=== PATIENT | female | born 1985 | race African-American/Black ===

== ENCOUNTER 2016-09-12 12:27 | Emergency (ER) | payer OTHER ==
[2016-09-12 12:45] VITALS: BP 111/59; PULSE 108; TEMP 99; BMI 24.5
--- NOTE | 2016-09-12 13:37 | PDOC ---
History of Present Illness - General Chief Complaint: Cold Symptoms Stated Complaint: COLD, VOMITING, FEVER Time Seen by Provider: 09/12/16 13:24 - History of Present Illness Initial Comments: 09/13/16 15:04 not seen by Yajaira FUNES Past History - Past Medical History Allergies/Adverse Reactions: Allergies Allergy/AdvReac Type Severity Reaction Status Date / Time No Known Allergies Allergy Verified 09/12/16 12:40 Home Medications: Ambulatory Orders Albuterol Sulfate Inhaler - [Ventolin HFA Inhaler -] 2 inh PO Q4H #1 inh Thyroid Disease: No Other medical history: DENIES. - Surgical History Abdominal Surgery: Yes - Psycho/Social/Smoking Cessation Hx Anxiety: No Suicidal Ideation: No Smoking History: Never smoked Have you smoked in the past 12 months: No Hx Alcohol Use: No Substance Use Type: None *Physical Exam - Vital Signs Last Vital Signs Temp Pulse Resp BP Pulse Ox 99 F 108 H 19 111/59 99 09/12/16 12:40 09/12/16 12:40 09/12/16 12:40 09/12/16 12:40 09/12/16 12:40 *DC/Admit/Observation/Transfer Diagnosis at time of Disposition: Influenza A - Discharge Dispostion Disposition: HOME - Prescriptions Prescriptions: Albuterol Sulfate Inhaler - [Ventolin HFA Inhaler -] 2 inh PO Q4H #1 inh - Referrals Referrals: STAFF,NOT ON [Primary Care Provider] - - Patient Instructions Additional Instructions: REST AT HOME; LOTS OF FLUIDS; MOTRIN FOR FEVER, BODY ACHES; - Post Discharge Activity Work/School Note: Back to Work
[2016-09-12] MEDS ORDERED: KETOROLAC TROMETHAMINE 60 MG/2 ML VIAL IM ONE (13:53)
[2016-09-12] MEDS ORDERED: ALBUTEROL SO4 0.083% IH SOL 2.5 MG/3 ML VIAL.NEB. NEB ONE ×2 (13:58→14:03)
[2016-09-12] MEDS ORDERED: ONDANSETRON 4 MG TABLET PO ONE (14:02)
[2016-09-12] MEDS ORDERED: KETOROLAC TROMETHAMINE 60 MG/2 ML VIAL ONE (14:13)
[2016-09-12] MEDS ORDERED: ONDANSETRON *ODT* 4 MG TABLET ONE (14:13)
[2016-09-12 14:38] LABS: URINE APPEARANCE SLCLOUDY; URINE BILIRUBIN NEGATIVE (NEGATIVE); URINE BLOOD NEGATIVE (NEGATIVE); URINE COLOR YELLOW; URINE GLUCOSE (UA) NEGATIVE (NEGATIVE); URINE KETONE TRACE (NEGATIVE); URINE LEUK ESTERASE NEGATIVE (NEGATIVE); URINE NITRITE NEGATIVE (NEGATIVE); URINE PROTEIN NEGATIVE (NEGATIVE); URINE UROBILINOGEN NEGATIVE E.U./dl (0.2-1.0)
--- NOTE | 2016-09-12 15:42 | PDOC ---
History of Present Illness - General Chief Complaint: Cold Symptoms Stated Complaint: COLD, VOMITING, FEVER Time Seen by Provider: 09/12/16 13:24 History Source: Patient Exam Limitations: No Limitations - History of Present Illness Initial Comments: 09/12/16 15:37 CC FEVER, CHILLS, ndv X 3 DAYS WITH BODY ACHES Timing/Duration: reports: getting worse Severity: reports: moderate Possible Cause: Yes: no prior episodes Past History - Past Medical History Allergies/Adverse Reactions: Allergies Allergy/AdvReac Type Severity Reaction Status Date / Time No Known Allergies Allergy Verified 09/12/16 12:40 Home Medications: Ambulatory Orders NK [No Known Home Medication] 12/03/14 Thyroid Disease: No Other medical history: DENIES. - Surgical History Abdominal Surgery: Yes - Psycho/Social/Smoking Cessation Hx Anxiety: No Suicidal Ideation: No Smoking History: Never smoked Have you smoked in the past 12 months: No Hx Alcohol Use: No Substance Use Type: None Review of Systems - Review of Systems Constitutional: Yes: Chills, Fever, Malaise HEENTM: Yes: Nose Pain, Nose Congestion Respiratory: Yes: Cough ABD/GI: Yes: Symptoms Reported, Nausea, Vomiting. No: Diarrhea *Physical Exam - Vital Signs Last Vital Signs Temp Pulse Resp BP Pulse Ox 99 F 108 H 19 111/59 99 09/12/16 12:40 09/12/16 12:40 09/12/16 12:40 09/12/16 12:40 09/12/16 12:40 - Physical Exam General Appearance: Yes: Appropriately Dressed. No: Apparent Distress HEENT: positive: TMs Normal, Pharynx Normal. negative: Tonsillar Exudate, Tonsillar Erythema Neck: positive: Supple. negative: Tender, Rigid, Lymphadenopathy (R), Lymphadenopathy (L) Respiratory/Chest: positive: Lungs Clear, Wheezing Cardiovascular: positive: Regular Rhythm, Regular Rate. negative: Murmur ED Treatment Course - ADDITIONAL ORDERS Additional order review: Laboratory Results 09/12/16 12:13 Urine Color Yellow Urine Appearance Slcloudy Urine pH 6.0 Ur Specific [place] 1.025 Urine Protein Negative Urine Glucose (UA) Negative Urine Ketones Trace H Urine Blood Negative Urine Nitrite Negative Urine Bilirubin Negative Urine Urobilinogen Negative Ur Leukocyte Esterase Negative Urine HCG, Qual Negative 09/12/16 12:13 Influenza Types A,B Antigen ([facility]) - Final Nasopharyngeal Swab - Final - Medications Given in the ED: ED Medications Discontinued Medications Generic Name Dose Route Start Last Admin Trade Name Freq PRN Reason Stop Dose Admin Albuterol Sulfate 1 amp 09/12/16 13:58 09/12/16 14:07 Ventolin 0.083% Nebulizer Soln - NEB 09/12/16 13:59 1 amp ONCE ONE Administration Ketorolac Tromethamine 60 mg 09/12/16 13:53 09/12/16 15:00 Toradol Injection - IM 09/12/16 13:54 60 mg ONCE ONE Administration Ondansetron HCl 4 mg 09/12/16 14:02 09/12/16 14:24 Zofran - PO 09/12/16 14:03 4 mg ONCE ONE Administration Medical Decision Making - Medical Decision Making 09/12/16 15:40 POSITIVE INFLUENZA A ; BUT HAD FLU SHOT EARLY IN WEEK; PT hcw AT [facility] *DC/Admit/Observation/Transfer Diagnosis at time of Disposition: Influenza A - Discharge Dispostion Disposition: HOME Condition at time of disposition: Stable Admit: No - Patient Instructions Additional Instructions: REST AT HOME; LOTS OF FLUIDS; MOTRIN FOR FEVER, BODY ACHES; - Post Discharge Activity Work/School Note: Back to Work
== END 2016-09-12 16:36 | disposition home or self-care (01) ==
LOC: JERFT 12:27
PROC: 3E0F7GC Introduction of Other Therapeutic Substance into Respiratory Tract, Via Natural or Artificial Opening (ICD-10-PCS; principal; 2016-09-12)
PROC: 3E0233Z Introduction of Anti-inflammatory into Muscle, Percutaneous Approach (ICD-10-PCS; 2016-09-12)
DX: J09.X2 Influenza due to identified novel influenza A virus with other respiratory manifestations (principal)
CPT/HCPCS: 81003; 84703; 87804; 94640; 96372; 99281-25

== ENCOUNTER 2017-06-21 12:13 | Emergency (ER) | payer OTHER ==
[2017-06-21 12:29] VITALS: TEMP 98.2; BMI 25.0
--- NOTE | 2017-06-21 12:45 | PDOC ---
*Physical Exam - Vital Signs Last Vital Signs Temp Pulse Resp BP Pulse Ox 98.2 F 79 18 115/51 100 06/21/17 12:26 06/21/17 12:26 06/21/17 12:26 06/21/17 12:26 06/21/17 12:26 ED Treatment Course - LABORATORY CBC & Chemistry Diagram: 06/21/17 13:50 06/21/17 13:50 Medical Decision Making - Medical Decision Making 06/21/17 16:12 Pt seen by the Advanced Practice Provider under my direct supervision Ancillary studies reviewed I agree with plan as outlined by the Advanced Practice Provider
--- NOTE | 2017-06-21 13:46 | PDOC ---
History of Present Illness - General Chief Complaint: Pain Stated Complaint: ABD PAIN Time Seen by Provider: 06/21/17 12:40 History Source: Patient Exam Limitations: No Limitations - History of Present Illness Travel History: No Initial Comments: 06/21/17 13:01 32-year-old female presents with the pain since yesterday. Patient states the approximately 6 weeks but has had no care, ultrasound or urinary complaints. 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 Patient states has no back pain, vaginal discharge, vaginal bleeding, constipation, dyspareunia, recent injury. Timing/Duration: reports: constant Quality: reports: mild, cramping Abdominal Pain Onset Location: reports: suprapubic Pain Radiation: reports: no radiation Activities at Onset: reports: none Aggravating Factors: improves with: None Alleviating Factors: improves with: None Past History - Past Medical History Allergies/Adverse Reactions: Allergies Allergy/AdvReac Type Severity Reaction Status Date / Time No Known Allergies Allergy Verified 06/21/17 12:26 Home Medications: Ambulatory Orders Albuterol Sulfate Inhaler - [Ventolin HFA Inhaler -] 2 inh PO Q4H #1 inh COPD: No Thyroid Disease: No - Surgical History Abdominal Surgery: Yes - Suicide/Smoking/Psychosocial Hx Smoking History: Never smoked Have you smoked in the past 12 months: No Information on smoking cessation initiated: No Hx Alcohol Use: No Substance Use Type: None Patient Lives Alone: No Lives with/in: spouse/SO Review of Systems - Review of Systems Able to Perform ROS?: Yes Constitutional: No: Symptoms Reported HEENTM: No: Symptoms Reported Respiratory: No: Symptoms reported Cardiac (ROS): No: Symptoms Reported ABD/GI: Yes: Abdominal cramping : No: Symptoms Reported Musculoskeletal: No: Symptoms Reported Integumentary: No: Symptoms Reported Neurological: No: Symptoms reported *Physical Exam - Vital Signs Last Vital Signs Temp Pulse Resp BP Pulse Ox 98.2 F 79 18 115/51 100 06/21/17 12:26 06/21/17 12:26 06/21/17 12:26 06/21/17 12:26 06/21/17 12:26 - Physical Exam General Appearance: Yes: Nourished, Appropriately Dressed. No: Apparent Distress Neck: positive: Normal Thyroid Respiratory/Chest: positive: Lungs Clear, Normal Breath Sounds. negative: Respiratory Distress, Accessory Muscle Use Cardiovascular: positive: Regular Rhythm, Regular Rate. negative: Murmur Female Pelvic Exam: negative: CMT, discharge, adnexal tenderness, vaginal bleeding Gastrointestinal/Abdominal: positive: Normal Bowel Sounds, Soft, Tenderness ( midsuprapubic). negative: Distended, Guarding, Rebound, Mass Musculoskeletal: negative: CVA Tenderness Extremity: negative: Pedal Edema Integumentary: positive: Normal Color, Warm, Moist Neurologic: positive: Motor Strength 5/5 (ambulatory) ED Treatment Course - RADIOLOGY Radiology Studies Ordered: Category Date Time Status TRANSVAGINAL US PREG [US] Stat Ultrasound 06/21/17 13:40 Ordered Medical Decision Making - Medical Decision Making 06/21/17 13:47 Patient was reviewed pain for the past 2-3 days without urinary complaints including vaginal complaints. Patient has had no care or ultrasound for this patient denies tobacco use. Patient on exam had suprapubic tenderness with no vaginal discharge CMT or adnexal tenderness. Patient ordered for CBC, comp, beta hCG, urinalysis urine culture, and ultrasound. Patient also ordered for Tylenol for discomfort.
[2017-06-21] MEDS ORDERED: ACETAMINOPHEN 500 MG TABLET (FP) PO ONE (13:48)
[2017-06-21 14:01] LABS: BASOPHIL 0.6 % (0-2.0); EOSINOPHIL 1.3 % (0-4.5); MCH 26.4 pg (25.7-33.7); MCHC 31.7 g/dl (32.0-36.0); MEAN CELL VOLUME 83.3 fl (80-96); MEAN PLT VOLUME 6.9 fl (7.5-11.1); NEUTROPHILS 54.8 % (42.8-82.8); PLATELET COUNT 288 K/MM3 (134-434); WHITE BLOOD COUNT 5.8 K/mm3 (4.0-10.0)
[2017-06-21] MEDS ORDERED: ACETAMINOPHEN 325 MG TABLET (FP) ONE (14:03)
[2017-06-21 14:05] LABS: URINE APPEARANCE CLEAR; URINE BILIRUBIN NEGATIVE (NEGATIVE); URINE BLOOD NEGATIVE (NEGATIVE); URINE COLOR STRAW; URINE GLUCOSE (UA) NEGATIVE (NEGATIVE); URINE KETONE NEGATIVE (NEGATIVE); URINE NITRITE NEGATIVE (NEGATIVE); URINE PROTEIN NEGATIVE (NEGATIVE); URINE UROBILINOGEN NEGATIVE mg/dL (0.2-1.0)
--- NOTE | 2017-06-21 14:05 | PDOC ---
*Physical Exam - Vital Signs 32 YOF (6 wks preg based on LMP) p/w 2-3d of suprapubic pain, no urinary sxs, no vaginal bleeding or discharge, no CMT or adnexal tenderness, not bleeding and no T&S ordered. Following up transvaginal US Saw an DISK RECORDIST for her prior and plans to follow up with them for her care. Last Vital Signs Temp Pulse Resp BP Pulse Ox 98.2 F 79 18 115/51 100 06/21/17 12:26 06/21/17 12:26 06/21/17 12:26 06/21/17 12:26 06/21/17 12:26 ED Treatment Course - LABORATORY CBC & Chemistry Diagram: 06/21/17 13:50 06/21/17 13:50 *DC/Admit/Observation/Transfer Diagnosis at time of Disposition: Abdominal pain affecting - Discharge Dispostion Disposition: HOME Condition at time of disposition: Stable Admit: No - Referrals - Patient Instructions Printed Discharge Instructions: DI for Abdominal Pain -- Early Additional Instructions: You were seen in the ER for abdominal pain in early . We did lab work and there were no concerning findings in your blood or urine tests. We also did a pelvic exam and there were no concerning findings on that exam. We did an ultrasound which showed the gestational sac at a size typical of about a 6 week 1 day . Oftentimes when the is this early, we do not see any contents inside this gestational sac, and we cannot see contents on your ultrasound. They may be easier to see in the coming days or weeks. We checked your test which was positive, but it needs to be re-checked in 48 hours or so. Please follow up with your OB doctor as scheduled tomorrow, and discuss with them the plan moving forward to re-check your hormones (beta-hCG). Our recommendation is to have your hormone level re-checked in 48 hours. Please also return to the ER if you have any new or worsening symptoms like worsening pain, vaginal bleeding, fever, or other symptoms. - Post Discharge Activity
[2017-06-21 14:32] LABS: ANION GAP 7 (8-16); BILIRUBIN,TOTAL 0.4 mg/dL (0.2-1.0); CALCIUM 8.6 mg/dL (8.5-10.1); CO2 27 mmol/L (21-32); CREATININE 0.6 mg/dL (0.55-1.02); GLUCOSE,RANDOM 100 mg/dL (74-106); SGOT/AST 10 U/L (15-37); SGPT/ALT 16 U/L (12-78); TOT PROT 6.7 g/dl (6.4-8.2)
[2017-06-21 14:48] LABS: ALK PHOS 71 U/L (45-117)
[2017-06-21 16:34] VITALS: BP 119/75; PULSE 72
[2017-06-21 19:59] LABS: URINE LEUK ESTERASE Negative (NEGATIVE)
== END 2017-06-21 16:34 | disposition home or self-care (01) ==
LOC: JER 12:13
DX: O26.891 Other specified pregnancy related conditions, first trimester (principal); R10.30 Lower abdominal pain, unspecified; Z3A.01 Less than 8 weeks gestation of pregnancy
CPT/HCPCS: 36415; 76817-TC; 80053; 81003; 84702; 85025; 87086; 99282-25

== ENCOUNTER 2017-07-04 16:49 | Emergency (ER) | payer OTHER ==
--- NOTE | 2017-07-04 17:00 | PDOC ---
Rapid Medical Evaluation Time Seen by Provider: 07/04/17 16:58 Medical Evaluation: Allergies Allergy/AdvReac Type Severity Reaction Status Date / Time No Known Allergies Allergy Verified 07/04/17 16:58 07/04/17 16:58 I have performed a brief in person evaluation of this patient. The patient presents with chief complaint of : lmp 05/03/17 had cramping this am with "passing of material" and some light vaginal bleeding. c section x1 9 yrs ago , followed at [facility] Pertinent PE findings: I have ordered the following: The patient will proceed to the ER for further evaluation.
[2017-07-04 17:01] VITALS: BMI 26.4
[2017-07-04 17:37] LABS: BASOPHIL 0.4 % (0-2.0); EOSINOPHIL 1.6 % (0-4.5); MCH 27.8 pg (25.7-33.7); MCHC 33.6 g/dl (32.0-36.0); MEAN PLT VOLUME 7.4 fl (7.5-11.1); NEUTROPHILS 49.4 % (42.8-82.8); PLATELET COUNT 279 K/MM3 (134-434); RDW 13.8 % (11.6-15.6); WHITE BLOOD COUNT 6.7 K/mm3 (4.0-10.0)
[2017-07-04 17:41] LABS: URINE APPEARANCE CLEAR; URINE BILIRUBIN NEGATIVE (NEGATIVE); URINE BLOOD 2+ (NEGATIVE); URINE COLOR STRAW; URINE GLUCOSE (UA) NEGATIVE (NEGATIVE); URINE KETONE NEGATIVE (NEGATIVE); URINE NITRITE NEGATIVE (NEGATIVE); URINE PROTEIN NEGATIVE (NEGATIVE); URINE UROBILINOGEN NEGATIVE mg/dL (0.2-1.0)
[2017-07-04 20:44] LABS: URINE MUCUS RARE; URINE RBC <1 /hpf (0-3); URINE WBC <1 /hpf (3-5)
[2017-07-04 21:02] LABS: INR 0.98 (0.82-1.09); PROTHROMBIN TIME (PATIENT) 11.1 SEC (9.98-11.88)
--- NOTE | 2017-07-04 21:25 | PDOC ---
History of Present Illness - General History Source: Patient Exam Limitations: No Limitations - History of Present Illness Initial Comments: 07/04/17 21:40 The patient is a 32 year old female () 7 weeks , with no significant past medical history who presents to the emergency department with vaginal discharge today. Patient reports showering today and subsequently noticed clotting and pink vaginal discharge. Patient also notes cramping abdominal pain and presents to the ED for further evaluation. Patient was seen in the ED for cramping and was found to have positive . Patient denied any vaginal pain or contractions. <Jaquelin Collins - Last Filed: 07/04/17 21:58> <Sara Barry - Last Filed: 07/04/17 22:31> - General Chief Complaint: Vaginal Bleeding Stated Complaint: VAGINAL BLEEDING/7 WKS Time Seen by Provider: 07/04/17 16:58 Past History <Jaquelin Collins - Last Filed: 07/04/17 21:58> - Past Medical History COPD: No Thyroid Disease: No - Surgical History Abdominal Surgery: Yes - Reproductive History Is Patient Now?: Yes (#): 2 Para: 1 - Suicide/Smoking/Psychosocial Hx Smoking History: Never smoked Have you smoked in the past 12 months: No Hx Alcohol Use: No Substance Use Type: None <Sara Barry - Last Filed: 07/04/17 22:31> - Past Medical History Allergies/Adverse Reactions: Allergies Allergy/AdvReac Type Severity Reaction Status Date / Time No Known Allergies Allergy Verified 07/04/17 16:58 Home Medications: Ambulatory Orders NK [No Known Home Medication] 07/04/17 Review of Systems - Review of Systems Able to Perform ROS?: Yes Comments:: 07/04/17 21:40 CONSTITUTIONAL: Absent: fever, chills, diaphoresis, generalized weakness, malaise, loss of appetite HEENT: Absent: rhinorrhea, nasal congestion, throat pain, throat swelling, difficulty swallowing, mouth swelling, ear pain, eye pain, visual Changes CARDIOVASCULAR: Absent: chest pain, syncope, palpitations, irregular heart rate, lightheadedness , peripheral edema RESPIRATORY: Absent: cough, shortness of breath, dyspnea with exertion, orthopnea, wheezing, stridor, hemoptysis GASTROINTESTINAL: Absent: abdominal pain, abdominal distension, nausea, vomiting, diarrhea, constipation, melena, hematochezia GENITOURINARY: Absent: dysuria, frequency, urgency, hesitancy, hematuria, flank pain, genital pain MUSCULOSKELETAL: Absent: myalgia, arthralgia, joint swelling SKIN: Absent: rash, itching, pallor HEMATOLOGIC/IMMUNOLOGIC: Absent: easy bleeding, easy bruising, lymphadenopathy, frequent infections ENDOCRINE: Absent: unexplained weight gain, unexplained weight loss, heat intolerance, cold intolerance NEUROLOGIC: Absent: headache, focal weakness or paresthesias, dizziness, unsteady gait, seizure, mental status changes, bladder or bowel incontinence PSYCHIATRIC: Absent: anxiety, depression, suicidal or homicidal ideation, hallucinations. : +vaginal discharge. <Jaquelin Collins - Last Filed: 07/04/17 21:58> *Physical Exam - Vital Signs Last Vital Signs Temp Pulse Resp BP Pulse Ox 98 F 96 H 19 118/66 100 07/04/17 16:58 07/04/17 16:58 07/04/17 16:58 07/04/17 16:58 07/04/17 16:58 - Physical Exam Comments: 07/04/17 21:40 GENERAL: Well developed, well nourished. Awake and alert. No acute distress. HEENT: Normocephalic, atraumatic. PERRLA, EOMI. No conjunctival pallor. Sclera are non- icteric. Moist mucous membranes. Oropharynx is clear. NECK: Supple. Full ROM. No JVD. Carotid pulses 2+ and symmetric, without bruits. No thyromegaly. No lymphadenopathy. CARDIOVASCULAR: Regular rate and rhythm. No murmurs, rubs, or gallops. Distal pulses are 2+ and symmetric. PULMONARY: No evidence of respiratory distress. Lungs clear to auscultation bilaterally. No wheezing, rales or rhonchi. ABDOMINAL: Soft. Non-tender. Non-distended. No rebound or guarding. No organomegaly. Normoactive bowel sounds. MUSCULOSKELETAL Normal range of motion at all joints. No bony deformities or tenderness. No CVA tenderness. EXTREMITIES: No cyanosis. No clubbing. No edema. No calf tenderness. SKIN: Warm and dry. Normal capillary refill. No rashes. No jaundice. NEUROLOGICAL: Alert, awake, appropriate. Cranial nerves 2-12 intact. No deficits to light touch and temperature in face, upper extremities and lower extremities. No motor deficits in the in face, upper extremities and lower extremities. Normoreflexic in the upper and lower extremities. Normal speech. Toes are down-going bilaterally. Gait is normal without ataxia. PSYCHIATRIC: Cooperative. Good eye contact. Appropriate mood and affect. PELVIC: +Cervical os is closed. No external vesicles. No discharge or blood in the vaginal vault. <Jaquelin Collins - Last Filed: 07/04/17 21:58> - Vital Signs Last Vital Signs Temp Pulse Resp BP Pulse Ox 98 F 96 H 19 118/66 100 07/04/17 16:58 07/04/17 16:58 07/04/17 16:58 07/04/17 16:58 07/04/17 16:58 <Sara Barry - Last Filed: 07/04/17 22:31> ED Treatment Course - LABORATORY CBC & Chemistry Diagram: 07/04/17 17:13 - ADDITIONAL ORDERS Additional order review: Laboratory Results 07/04/17 07/04/17 07/04/17 20:20 19:08 17:13 PT with INR INR Beta HCG, Quant 127286.7 Urine Color Straw Urine Appearance Clear Urine pH 6.0 Ur Specific [place] 1.008 Urine Protein Negative Urine Glucose (UA) Negative Urine Ketones Negative Urine Blood 2+ H Urine Nitrite Negative Urine Bilirubin Negative Urine Urobilinogen Negative Urine WBC (Auto) <1 Urine RBC (Auto) <1 Ur Epithelial Cells Rare Urine Mucus Rare Urine HCG, Qual Positive Blood Type O POSITIVE Antibody Screen Negative 07/04/17 17:13 PT with INR 11.10 INR 0.98 Beta HCG, Quant Urine Color Urine Appearance Urine pH Ur Specific [place] Urine Protein Urine Glucose (UA) Urine Ketones Urine Blood Urine Nitrite Urine Bilirubin Urine Urobilinogen Urine WBC (Auto) Urine RBC (Auto) Ur Epithelial Cells Urine Mucus Urine HCG, Qual Blood Type Antibody Screen 07/04/17 17:13 RBC 3.92 MCV 83.0 MCHC 33.6 RDW 13.8 MPV 7.4 L Neutrophils % 49.4 Lymphocytes % 37.4 Monocytes % 11.2 H Eosinophils % 1.6 Basophils % 0.4 <Jaquelin Collins - Last Filed: 07/04/17 21:58> - LABORATORY CBC & Chemistry Diagram: 07/04/17 17:13 - ADDITIONAL ORDERS Additional order review: Laboratory Results 12/04/17 12/04/17 12/04/17 20:20 19:08 17:13 PT with INR INR Beta HCG, Quant [id number] Urine Color Straw Urine Appearance Clear Urine pH 6.0 Ur Specific [place] 1.008 Urine Protein Negative Urine Glucose (UA) Negative Urine Ketones Negative Urine Blood 2+ H Urine Nitrite Negative Urine Bilirubin Negative Urine Urobilinogen Negative Urine WBC (Auto) <1 Urine RBC (Auto) <1 Ur Epithelial Cells Rare Urine Mucus Rare Urine HCG, Qual Positive Blood Type O POSITIVE Antibody Screen Negative 07/04/17 17:13 PT with INR 11.10 INR 0.98 Beta HCG, Quant Urine Color Urine Appearance Urine pH Ur Specific [place] Urine Protein Urine Glucose (UA) Urine Ketones Urine Blood Urine Nitrite Urine Bilirubin Urine Urobilinogen Urine WBC (Auto) Urine RBC (Auto) Ur Epithelial Cells Urine Mucus Urine HCG, Qual Blood Type Antibody Screen 07/04/17 17:13 RBC 3.92 MCV 83.0 MCHC 33.6 RDW 13.8 MPV 7.4 L Neutrophils % 49.4 Lymphocytes % 37.4 Monocytes % 11.2 H Eosinophils % 1.6 Basophils % 0.4 <Sara Barry - Last Filed: 07/04/17 22:31> Medical Decision Making - Medical Decision Making 07/04/17 22:03 -year-old female presents with some vaginal discharge. Patient is a special. Was in May. Beta-hCG greater than 123,000 Pelvic ultrasound shows single live intrauterine at 8 weeks and one day with heart tones of 154. There was a right corpus luteum cyst. Impression bleeding in early . Plan patient has an appointment with S[facility]DER this Tuesday and won't take her lab work and her ultrasound dictated department with her <Sara Barry - Last Filed: 07/04/17 22:31> *DC/Admit/Observation/Transfer - Attestations Scribe Attestion: 07/04/17 21:41 Documentation prepared by Jaquelin Collins, acting as medical instrument technician for Sara Barry MD <Jaquelin Collins - Last Filed: 07/04/17 21:58> <Sara Barry - Last Filed: 07/04/17 22:31> Diagnosis at time of Disposition: Qualifiers: Weeks of gestation: 8 weeks Qualified Code(s): Z3A.08 - 8 weeks gestation of - Discharge Dispostion Disposition: HOME Condition at time of disposition: Stable - Referrals Referrals: STAFF,NOT ON [Primary Care Provider] - - Patient Instructions Printed Discharge Instructions: DI for Vaginal Bleeding During Additional Instructions: please keep your appointment this Wed - Post Discharge Activity
[2017-07-04 22:53] LABS: URINE LEUK ESTERASE Negative (NEGATIVE)
[2017-07-05 06:00] VITALS: BP 129/80; PULSE 70; TEMP 98
== END 2017-07-04 22:33 | disposition home or self-care (01) ==
LOC: JER 16:49
DX: O26.891 Other specified pregnancy related conditions, first trimester (principal); Z3A.01 Less than 8 weeks gestation of pregnancy; N93.9 Abnormal uterine and vaginal bleeding, unspecified
CPT/HCPCS: 36415; 76801-TC; 81003; 81015; 84702; 84703; 85025; 85610; 86850; 86900; 86901; 99283-25

== ENCOUNTER 2018-02-10 06:35 | Inpatient (IN) | payer OTHER ==
[2018-02-10 07:06] VITALS: BMI 33.0
[2018-02-10] MEDS ORDERED: OXYTOCIN 20 UNITS in 0.9% NS 40 UNIT/2,000 ML INFUS.BAG IV ONE (07:56)
[2018-02-10] MEDS ORDERED: ceFAZolin SODIUM 1 GM VIAL ONE (07:57)
[2018-02-10] MEDS ORDERED: morphine SULFATE/Preservative Free 0.5 MG/ML (1cc Syringe) ONE (07:57)
[2018-02-10] MEDS ORDERED: DEXAMETHASONE SOD PHOSPHATE 4 MG/1 ML VIAL ONE (07:57)
[2018-02-10] MEDS ORDERED: PHENYLEPHRINE HCL 10 MG/1 ML SINGLE DOSE VIAL ONE (07:58)
[2018-02-10] MEDS ORDERED: BUPIVACAINE 0.75% IN DEXTROSE/PF 2ML AMPULE NR ONE (08:03)
[2018-02-10] MEDS ORDERED: ELECTROLYTE-148 SOLN 500 ML IV ONE (08:23)
[2018-02-10] MEDS ORDERED: CITRIC ACID/SODIUM CITRATE 30 ML UNIT-DOSE CUP PO ONE (08:23)
--- NOTE | 2018-02-10 08:29 | HP ---
Past Medical History - Admission Chief Complaint: Previous History of Present Illness: 32 yo @ 39 weeks gestation, with previous , admitted for repeat C- Section. She desires tubal ligation. History Source: Patient Limitations to Obtaining History: No Limitations - Past Medical History ...: 2 ...Para: 1 ...Term: 1 ...EDC by Jocelin: 02/17/18 - Past Surgical History Past Surgical History: Yes: Hx Myomectomy: No Hx Transabdominal Cerclage: No - Smoking History Smoking history: Never smoked Have you smoked in the past 12 months: No - Alcohol/Substance Use Hx Alcohol Use: No History of Substance Use: reports: None - Social History Usual Living Arrangement: Yes: With Significant Other History of Recent Travel: No Home Medications - Allergies Allergies/Adverse Reactions: Allergies Allergy/AdvReac Type Severity Reaction Status Date / Time carrot Allergy Verified 02/10/18 07:09 - Home Medications Home Medications: Ambulatory Orders Vit Calc,Iron,Folic [ Vitamins] 1 each PO DAILY 02/10/18 Family Disease History - Family Disease History Family History: Unremarkable Review of Systems - Review of Systems Constitutional: reports: No Symptoms Eyes: reports: No Symptoms HENT: reports: No Symptoms Neck: reports: No Symptoms Cardiovascular: reports: No Symptoms Respiratory: reports: No Symptoms Gastrointestinal: reports: No Symptoms Genitourinary: reports: No Symptoms Breasts: reports: No Symptoms Reported Musculoskeletal: reports: No Symptoms Integumentary: reports: No Symptoms Neurological: reports: No Symptoms Endocrine: reports: No Symptoms Hematology/Lymphatic: reports: No Symptoms Psychiatric: reports: No Symptoms Pain Intensity: 0 Physical Exam - Maternity Vital Signs: Vital Signs Temperature 98.4 F 02/10/18 06:45 Pulse Rate 89 02/10/18 06:45 Respiratory Rate 18 02/10/18 06:45 Blood Pressure 111/71 02/10/18 06:45 O2 Sat by Pulse Oximetry (%) Constitutional: Yes: Well Nourished Eyes: Yes: Conjunctiva Clear HENT: Yes: Atraumatic Neck: Yes: Supple Cardiovascular: Yes: Regular Rate and Rhythm Lungs: Clear to auscultation Breast(s): Yes: WNL - Abdominal Exam/OB Number of Fetuses: Single Presentation: Vertex - Physical Exam Integumentary: Yes: WNL ...Motor Strength: WNL Psychiatric: Yes: Alert, Oriented Problem List - Problems (1) Previous section Code(s): Z98.891 - HISTORY OF UTERINE SCAR FROM PREVIOUS SURGERY Assessment/Plan Previous Pre op for repeat Consent signed Anesthesia to see patient
[2018-02-10] MEDS ORDERED: OXYTOCIN 10 UNITS/ML VIAL ONE (08:46)
[2018-02-10] MEDS ORDERED: KETOROLAC TROMETHAMINE 30 MG/1 ML VIAL ONE (09:24)
[2018-02-10] MEDS ORDERED: METHYLERGONOVINE MALEATE 0.2 MG/1 ML AMP IM PRN (09:31)
--- NOTE | 2018-02-10 09:34 | OP ---
Operative Note - Note: Operative Date: 02/10/18 Pre-Operative Diagnosis: Elective Operation: Repeat Low Transverse Findings: Baby girl in LOT position Post-Operative Diagnosis: Same as Pre-op Surgeon: Crystal Che Compress Engineer: Tone Arenas Anesthesia: Spinal Specimens Removed: Placenta Estimated Blood Loss (mls): 500
[2018-02-10] MEDS: FERROUS SO4 325 MG TABLET (FP) PO SCH (10:00)
[2018-02-10] MEDS: PRENATAL VITAMINS W/ FOLIC ACID TABLET (FP) PO SCH (10:00)
[2018-02-10] MEDS: OXYTOCIN 20 UNITS in 0.9% NS 20 UNIT/1,000 ML INFUS.BAG IV SCH ×2 (11:30→17:00)
[2018-02-10] MEDS ORDERED: ELECTROLYTE-148 SOLN 1,000 ML IV SCH (11:40)
[2018-02-10] MEDS ORDERED: IBUPROFEN 800 MG/8 ML IJ IVPB ONE (11:56)
[2018-02-10] MEDS: IBUPROFEN 800 MG/8 ML IJ IVPB PRN ×2 (12:00→21:58)
[2018-02-10] MEDS ORDERED: ONDANSETRON 4 MG/2 ML VIAL IVPUSH PRN (13:16)
--- NOTE | 2018-02-11 01:11 | PN ---
Post Progress Note - Subjective Subjective: 32 yo Para 2 status post repeat , seen and evaluated. She c/o generalized body itch. Post Day: 1 Type of Delivery: Repeat C/S Vital Signs: Vital Signs Temperature 98.9 F 02/10/18 22:00 Pulse Rate 73 02/10/18 22:00 Respiratory Rate 18 02/11/18 00:00 Blood Pressure 119/62 02/10/18 22:00 O2 Sat by Pulse Oximetry (%) 99 02/10/18 11:15 Breast Exam: Yes: Soft Uterus: Yes: Fundus Firm Incision: Yes: Dressing dry and intact Lochia: Yes: Rubra Lochia, amount: Small Extremities: Yes: Calves non-tender Perineum: Yes: Intact Activity: Other (She's lying in bed) Problem List - Problems (1) Previous section Code(s): Z98.891 - HISTORY OF UTERINE SCAR FROM PREVIOUS SURGERY Assessment/Plan Status post repeat Generalized body itch Benadryl 50 mg Q 6 hrs Ambulation Analgesia as needed Continue post op care
[2018-02-11] MEDS: diphenhydrAMINE HCL 25 MG CAPSULE (FP) PO PRN ×3 (01:23→15:00)
[2018-02-11] MEDS: SIMETHICONE 80 MG TAB.CHEW (FP) PO PRN ×4 (04:23→23:22)
[2018-02-11] MEDS: IBUPROFEN 600 MG TABLET (FP) PO PRN ×4 (04:23→23:22)
[2018-02-11] MEDS: oxyCODONE HCL 5 MG TABLET PO PRN ×4 (04:23→23:22)
[2018-02-11 07:01] LABS: BASO % 0.2 % (0-2.0); EOS % 0.2 % (0-4.5); HEMATOCRIT 23.1 % (32.4-45.2); HEMOGLOBIN 7.3 GM/dL (10.7-15.3); MCH 24.5 pg (25.7-33.7); MCHC 31.4 g/dl (32.0-36.0); MEAN PLT VOLUME 7.9 fl (7.5-11.1); MONO % 9.7 % (3.8-10.2); NEUT % 71.9 % (42.8-82.8); PLATELET COUNT 261 K/MM3 (134-434); RBC 2.96 M/mm3 (3.60-5.2); RDW 15.9 % (11.6-15.6); WHITE BLOOD COUNT 16.4 K/mm3 (4.0-10.0)
[2018-02-11] MEDS: FERROUS SO4 325 MG TABLET (FP) PO SCH ×3 (08:34→17:33)
[2018-02-11] MEDS ORDERED: BISACODYL 10 MG SUPP.RECT RC PRN (09:31)
[2018-02-11] MEDS: PRENATAL VITAMINS W/ FOLIC ACID TABLET (FP) PO SCH (09:33)
[2018-02-11] MEDS ORDERED: DIPHTH,PERTUSS(ACELL),TET 0.5 ML DISP.SYRIN IM ONE (10:00)
[2018-02-11 12:07] LABS: BASO % 0.2 % (0-2.0); EOS % 0.3 % (0-4.5); HEMATOCRIT 23.2 % (32.4-45.2); HEMOGLOBIN 7.3 GM/dL (10.7-15.3); LYMPH % 17.8 % (8-40); MCH 24.6 pg (25.7-33.7); MCHC 31.6 g/dl (32.0-36.0); MEAN PLT VOLUME 7.5 fl (7.5-11.1); MONO % 7.5 % (3.8-10.2); NEUT % 74.2 % (42.8-82.8); PLATELET COUNT 267 K/MM3 (134-434); RBC 2.98 M/mm3 (3.60-5.2)
--- NOTE | 2018-02-11 20:03 | PN ---
Progress Note, Physician Chief Complaint: Pt. has been having generalized itching and blurred vision since this morning. She also has been bleeding and has a low hgb of 7.3. Otherwise no anesthesia complaints. - Current Medication List Current Medications: Active Medications Bisacodyl (Dulcolax Suppository -) 10 mg RC PRN PRN PRN Reason: CONSTIPATION Diphenhydramine HCl (Benadryl -) 50 mg PO Q6H PRN PRN Reason: FOR ITCHING Last Admin: 02/11/18 15:00 Dose: 50 mg Ferrous Sulfate (Feosol -) 325 mg PO BIDWM KAITLIN Last Admin: 02/11/18 17:33 Dose: 325 mg Ibuprofen (Motrin -) 600 mg PO Q4H PRN PRN Reason: PAIN LEVEL 1 - 3 Last Admin: 02/11/18 15:01 Dose: 600 mg Methylergonovine Maleate (Methergine Injection -) 0.2 mg IM Q4H PRN PRN Reason: Excessive Bleeding (L&D) Last Admin: 02/11/18 17:30 Dose: 0.2 mg Oxycodone HCl (Roxicodone -) 5 mg PO Q4H PRN PRN Reason: PAIN LEVEL 4 - 6 Last Admin: 02/11/18 15:02 Dose: 5 mg Multivit/Folic Acid/Iron ( Vitamins (Sjr) -) 1 tab PO DAILY KAITLIN Last Admin: 02/11/18 09:33 Dose: 1 tab Simethicone (Mylicon -) 80 mg PO Q4H PRN PRN Reason: GAS Last Admin: 02/11/18 15:03 Dose: 80 mg - Objective Vital Signs: Vital Signs Temperature 98.9 F 02/11/18 17:30 Pulse Rate 77 02/11/18 17:30 Respiratory Rate 20 02/11/18 17:30 Blood Pressure 99/55 02/11/18 17:30 O2 Sat by Pulse Oximetry (%) 99 02/10/18 11:15 Constitutional: Yes: Well Nourished, No Distress, Calm Musculoskeletal: Yes: WNL Neurological: Yes: Other (blurred vision) ...Motor Strength: WNL Labs: CBC, BMP 02/11/18 11:52 Assessment/Plan POD#1 s/p repeat and tubal ligation under spinal with duramorph. Has blurry vision and low blood count. Will be getting blood transfusion and seen by hospitalist for blurry vision. Benadryl was increased to 50mg q6h by Dr. Che.
--- NOTE | 2018-02-11 21:37 | CONSULT ---
Consultation: REQUESTING PROVIDER: CONSULT REQUEST: We have been asked to medically evaluate this patient for blurry vision. HISTORY OF PRESENT ILLNESS: 32 y/o F 1 day s/p , c/o blurry vision starting in the morning. Has passed flatus, no bowel movement yet Hgb 7.3, transfusion ordered. REVIEW OF SYSTEMS: headache, blurry vision, abdominal/pelvic cramping, passing bloody clots in urine, dizziness on rising from supine position. PHYSICAL EXAMINATION Vital Signs - 24 hr 02/10/18 02/10/18 02/11/18 22:00 23:00 00:00 Temperature 98.9 F Pulse Rate 73 Respiratory 18 18 18 Rate Blood Pressure 119/62 02/11/18 02/11/18 02/11/18 01:00 02:00 03:00 Temperature 98.5 F Pulse Rate 70 Respiratory 18 18 18 Rate Blood Pressure 106/55 02/11/18 02/11/18 02/11/18 04:00 05:00 06:00 Temperature 98.3 F Pulse Rate 71 Respiratory 18 18 18 Rate Blood Pressure 103/61 02/11/18 02/11/18 02/11/18 07:00 08:00 08:40 Temperature 97.6 F Pulse Rate 75 Respiratory 20 20 18 Rate Blood Pressure 121/61 02/11/18 17:30 Temperature 98.9 F Pulse Rate 77 Respiratory 20 Rate Blood Pressure 99/55 GENERAL: Lethargic but arousable, oriented x 3 EYES: EOMI EARS, NOSE, THROAT: Moist mucous membranes. LUNGS: Breath sounds equal, clear to auscultation bilaterally. No wheezes, and no crackles. No accessory muscle use. HEART: Regular rate and rhythm, normal S1 and S2 without murmur, rub or gallop. ABDOMEN: distended, TTP throughout, surgical dressing intact w/o leakage EXTREMITIES: 2+ pulses, warm, well-perfused. No calf tenderness. No peripheral edema. NEUROLOGICAL: Cranial nerves II-XII intact. Moving 4 extremities spontaneously SKIN: Warm, dry, normal turgor, no rashes or lesions noted. Laboratory Results - last 24 hr 02/11/18 02/11/18 02/11/18 06:30 11:52 18:38 WBC 16.4 H 14.0 H RBC 2.96 L 2.98 L Hgb 7.3 L 7.3 L Hct 23.1 L D 23.2 L MCV 78.0 L 78.0 L MCH 24.5 L 24.6 L MCHC 31.4 L 31.6 L RDW 15.9 H 16.0 H Plt Count 261 D 267 MPV 7.9 7.5 Absolute Neuts (auto) 11.8 10.4 Neutrophils % 71.9 74.2 Lymphocytes % 18.0 17.8 Monocytes % 9.7 7.5 Eosinophils % 0.2 0.3 Basophils % 0.2 0.2 Nucleated RBC % 0 0 Crossmatch See Detail Active Medications Generic Name Dose Route Start Last Admin Trade Name Freq PRN Reason Stop Dose Admin Bisacodyl 10 mg 02/11/18 09:31 Dulcolax Suppository - RC PRN PRN CONSTIPATION Diphenhydramine HCl 50 mg 02/11/18 01:04 02/11/18 15:00 Benadryl - PO 50 mg Q6H PRN Administration FOR ITCHING Ferrous Sulfate 325 mg 02/10/18 10:00 02/11/18 17:33 Feosol - PO 325 mg BIDWM KAITLIN Administration Ibuprofen 600 mg 02/10/18 09:31 02/11/18 15:01 Motrin - PO 600 mg Q4H PRN Administration PAIN LEVEL 1 - 3 Methylergonovine Maleate 0.2 mg 02/10/18 09:31 02/11/18 17:30 Methergine Injection - IM 0.2 mg Q4H PRN Administration Excessive Bleeding (L&D) Oxycodone HCl 5 mg 02/10/18 09:31 02/11/18 15:02 Roxicodone - PO 5 mg Q4H PRN Administration PAIN LEVEL 4 - 6 Multivit/Folic Acid/Iron 1 tab 02/10/18 10:00 02/11/18 09:33 Vitamins (Sjr) - PO 1 tab DAILY KAITLIN Administration Simethicone 80 mg 02/10/18 09:31 02/11/18 15:03 Mylicon - PO 80 mg Q4H PRN Administration GAS ASSESSMENT/PLAN: #blurry vision -able to track finger appropriately in EOM assessment -unlikely any organic ocular pathology -ordered CBC, CMP, lactic acid, magnesium, PT/INR -will assess for correction 2/2 correction of anemia Dispo: We will continue to follow the patient. Thank you for this consultative opportunity. Visit type - Emergency Visit Emergency Visit: No - New Patient This patient is new to me today: Yes Date on this admission: 02/11/18 - Critical Care Critical Care patient: No
[2018-02-11 21:54] LABS: HEMOGLOBIN 8.1 GM/dL (10.7-15.3); MCH 24.1 pg (25.7-33.7); MCHC 31.2 g/dl (32.0-36.0); MEAN CELL VOLUME 77.4 fl (80-96); PLATELET COUNT 334 K/MM3 (134-434); RBC 3.36 M/mm3 (3.60-5.2); RDW 16.2 % (11.6-15.6); WHITE BLOOD COUNT 11.5 K/mm3 (4.0-10.0)
[2018-02-11 22:07] LABS: INR 0.93 (0.82-1.09); PROTHROMBIN TIME (PATIENT) 10.5 SEC (9.7-13.0)
[2018-02-11 22:18] LABS: ALBUMIN 2.1 g/dl (3.4-5.0); ANION GAP 8 (8-16); BLOOD UREA NITROGEN 6 mg/dL (7-18); CALCIUM 7.9 mg/dL (8.5-10.1); CHLORIDE 108 mmol/L (98-107); CO2 25 mmol/L (21-32); CREATININE 0.6 mg/dL (0.55-1.02); GLUCOSE,RANDOM 80 mg/dL (74-106); MAGNESIUM 1.9 mg/dL (1.8-2.4); POTASSIUM 3.5 mmol/L (3.5-5.1); SGOT/AST 21 U/L (15-37); SGPT/ALT 14 U/L (12-78); SODIUM 141 mmol/L (136-145)
[2018-02-11 22:20] LABS: ALK PHOS 141 U/L (45-117); BILIRUBIN,TOTAL 0.2 mg/dL (0.2-1.0); TOT PROT 5.7 g/dl (6.4-8.2)
--- NOTE | 2018-02-12 00:13 | PN ---
Teaching Attending Note Name of Resident: Dennis Carrizales ATTENDING PHYSICIAN STATEMENT I saw and evaluated the patient. I reviewed the resident's note and discussed the case with the resident. I agree with the resident's findings and plan as documented. SUBJECTIVE: 32yo woman POD 1 after C section, suddenly c/o some blurry vision and lightheadedness. Not related to position. Pt has been ambulating around room since her C section. Denied any syncope episodes. Pain only around surgical incision site. She denied any loss of vision, headaches, nausea, or vomiting. OBJECTIVE: general -nad, fully awake, oriented, obese heent- moist oral mucosa neck -supple cv-s1+s2+rrr chest - clear abdomen bs+, soft skin - no rashes appreciated ekg -reviewed by me, normal sinus rhythm Abnormal Lab Results 02/11/18 02/11/18 02/11/18 06:30 11:52 18:38 WBC 16.4 H 14.0 H RBC 2.96 L 2.98 L Hgb 7.3 L 7.3 L Hct 23.1 L D 23.2 L MCV 78.0 L 78.0 L MCH 24.5 L 24.6 L MCHC 31.4 L 31.6 L RDW 15.9 H 16.0 H Chloride BUN Calcium Alkaline Phosphatase Total Protein Albumin Crossmatch See Detail 02/11/18 02/11/18 21:31 21:31 WBC 11.5 H RBC 3.36 L Hgb 8.1 L Hct 26.0 L MCV 77.4 L MCH 24.1 L MCHC 31.2 L RDW 16.2 H Chloride 108 H BUN 6 L Calcium 7.9 L Alkaline Phosphatase 141 H D Total Protein 5.7 L Albumin 2.1 L Crossmatch ASSESSMENT AND PLAN: 32yo woman Post op s/p C section with severe symptomatic anemia. Blurry vision likely from anemia. Chemistry, and ekg wnl. -agree with transfusing one unit of prbc -CXR -IV fluid hydration -bed rest, fall precautions -chemistry, coags, lactate were all normal -adequate pain control -will reassess after blood transfusion -heparin sc for dvt ppx
[2018-02-12] MEDS: SIMETHICONE 80 MG TAB.CHEW (FP) PO PRN ×3 (04:49→20:21)
[2018-02-12] MEDS: IBUPROFEN 600 MG TABLET (FP) PO PRN ×3 (04:49→20:21)
[2018-02-12] MEDS: oxyCODONE HCL 5 MG TABLET PO PRN ×3 (04:50→20:21)
[2018-02-12 07:26] LABS: BASO % 0.4 % (0-2.0); EOS % 0.7 % (0-4.5); HEMATOCRIT 23.5 % (32.4-45.2); HEMOGLOBIN 7.7 GM/dL (10.7-15.3); MCH 25.7 pg (25.7-33.7); MCHC 32.7 g/dl (32.0-36.0); MEAN CELL VOLUME 78.6 fl (80-96); MEAN PLT VOLUME 7.8 fl (7.5-11.1); MONO % 12.8 % (3.8-10.2); NEUT % 66.1 % (42.8-82.8); PLATELET COUNT 235 K/MM3 (134-434); RBC 2.99 M/mm3 (3.60-5.2); RDW 16.6 % (11.6-15.6); WHITE BLOOD COUNT 10.5 K/mm3 (4.0-10.0)
--- NOTE | 2018-02-12 07:28 | PN ---
Post Progress Note Post Day: 2 Type of Delivery: Repeat C/S Vital Signs: Vital Signs Temperature 98.3 F 02/11/18 22:23 Pulse Rate 81 02/11/18 22:23 Respiratory Rate 20 02/11/18 22:23 Blood Pressure 112/63 02/11/18 22:23 O2 Sat by Pulse Oximetry (%) 99 02/10/18 11:15 Breast Exam: Yes: Soft Uterus: Yes: Fundus Firm, Fundus below umbilicus Incision: Yes: Dressing dry and intact Abdomen/GI: Yes: Abdomen soft, Passing flatus, Tolerating PO Lochia: Yes: Serosa Lochia, amount: Moderate Extremities: Yes: Calves non-tender Perineum: Yes: Intact - Labs Labs: CBC WBC 11.5 K/mm3 (4.0-10.0) H 02/11/18 21:31 RBC 3.36 M/mm3 (3.60-5.2) L 02/11/18 21:31 Hgb 8.1 GM/dL (10.7-15.3) L 02/11/18 21:31 Hct 26.0 % (32.4-45.2) L 02/11/18 21:31 MCV 77.4 fl (80-96) L 02/11/18 21:31 MCH 24.1 pg (25.7-33.7) L 02/11/18 21:31 MCHC 31.2 g/dl (32.0-36.0) L 02/11/18 21:31 RDW 16.2 % (11.6-15.6) H 02/11/18 21:31 Plt Count 334 K/MM3 (134-434) D 02/11/18 21:31 MPV 8.0 fl (7.5-11.1) 02/11/18 21:31 Absolute Neuts (auto) 10.4 # 02/11/18 11:52 Neutrophils % 74.2 % (42.8-82.8) 02/11/18 11:52 Lymphocytes % 17.8 % (8-40) 02/11/18 11:52 Monocytes % 7.5 % (3.8-10.2) 02/11/18 11:52 Eosinophils % 0.3 % (0-4.5) 07/14/18 11:52 Basophils % 0.2 % (0-2.0) 02/11/18 11:52 Nucleated RBC % 0 % (0-0) 02/11/18 11:52 Assessment/Plan s/p repeat section day 2 condition stable completely recovered from an episode of feeling weak and dizzy after taking benadryl for pruritus . currently she is asymptomatic i pack rbc was given f/u cbc is pending. advance activities ,and diet d/c hep lock
[2018-02-12] MEDS: FERROUS SO4 325 MG TABLET (FP) PO SCH ×2 (08:36→17:01)
[2018-02-12] MEDS: PRENATAL VITAMINS W/ FOLIC ACID TABLET (FP) PO SCH (10:00)
--- NOTE | 2018-02-12 14:16 | EKG ---
Test Reason : Blood Pressure : / mmHG Vent. Rate : 080 BPM Atrial Rate : 080 BPM P-R Int : 130 ms QRS Dur : 072 ms QT Int : 366 ms P-R-T Axes : 061 075 043 degrees QTc Int : 422 ms NORMAL SINUS RHYTHM NORMAL ECG NO PREVIOUS ECGS AVAILABLE Confirmed by Jean Dalton ([id number]) on 02/12/2018 2:16:19 PM Referred By: Confirmed By:Jean Dalton
[2018-02-13] MEDS: IBUPROFEN 600 MG TABLET (FP) PO PRN (06:37)
[2018-02-13] MEDS: oxyCODONE HCL 5 MG TABLET PO PRN (06:37)
[2018-02-13 07:17] LABS: BASO % 0.3 % (0-2.0); HEMATOCRIT 26.4 % (32.4-45.2); HEMOGLOBIN 8.5 GM/dL (10.7-15.3); LYMPH % 27.2 % (8-40); MCH 25.7 pg (25.7-33.7); MCHC 32.2 g/dl (32.0-36.0); MEAN CELL VOLUME 79.6 fl (80-96); MEAN PLT VOLUME 7.4 fl (7.5-11.1); MONO % 11.4 % (3.8-10.2); NEUT % 60.1 % (42.8-82.8); PLATELET COUNT 310 K/MM3 (134-434); RBC 3.32 M/mm3 (3.60-5.2); RDW 16.7 % (11.6-15.6); WHITE BLOOD COUNT 9.3 K/mm3 (4.0-10.0)
[2018-02-13] MEDS: FERROUS SO4 325 MG TABLET (FP) PO SCH (08:00)
[2018-02-13] MEDS: PRENATAL VITAMINS W/ FOLIC ACID TABLET (FP) PO SCH (09:12)
[2018-02-13 10:05] VITALS: BP 120/73; PULSE 88; TEMP 98.2
--- NOTE | 2018-02-13 10:38 | DS ---
Physical Exam-MEAT CURER Vital Signs: Vital Signs Temperature 98.2 F 02/13/18 10:04 Pulse Rate 88 02/13/18 10:04 Respiratory Rate 20 02/13/18 10:04 Blood Pressure 120/73 02/13/18 10:04 O2 Sat by Pulse Oximetry (%) 99 02/10/18 11:15 Labs: CBC, BMP 02/13/18 06:52 02/11/18 21:31 Delivery - Delivery Type of Anesthesia: Spinal Episiotomy/Laceration: None EBL (cc): 500 Delivery, Single - Stages of Labor Date of Delivery: 02/10/18 Time of Delivery: 08:48 Time Placenta Delivered: 08:49 - Condition of Zipper Cutter/Polymer Tester Present: Yes Name: Anastasia Andres Gender: Female Weight: 7 lb 14 oz Position: Left, OT Total Hours ROM (Hrs/Mins): 0/2 - 1 Minute Total Score: 9 5 Minutes Total Score: 9 - Collins Feeding Plan Initial Plan: Elected not to breastfeed exclusively throughout hospitalization Discharge Summary Reason For Visit: ADMIT C SECTION Current Active Problems Previous section (Acute) Condition: Good - Instructions Disposition: HOME - Home Medications Comprehensive Discharge Medication List: Ambulatory Orders Vit Calc,Iron,Folic [ Vitamins] 1 each PO DAILY 02/10/18 Ferrous Sulfate [Feosol] 325 mg PO BID #60 tablet 02/13/18 Ibuprofen [Motrin -] 600 mg PO QID PRN #28 tablet 02/13/18 Oxycodone HCl/Acetaminophen [Percocet 5-325 mg Tablet -] 1 tab PO Q4H #20 tablet MDD 6 02/13/18
--- NOTE | 2018-02-13 12:08 | PN ---
Teaching Attending Note Name of Resident: Dennis Carrizales ATTENDING PHYSICIAN STATEMENT I saw and evaluated the patient. I reviewed the resident's note and discussed the case with the resident. I agree with the resident's findings and plan as documented. SUBJECTIVE: No fever or chills , no CP , no light headedness, no abd pain . Nl vision today. denies any itchiness or rash OBJECTIVE: NAD , MMM, no facial droop. CV: RRR, No MRG Lungs :CTAB Ext : edema on feet ASSESSMENT AND PLAN: 32 y/o lady who is s/p C section . medicine consult was requested due to blurry vision and dizziness in the setting of anemia . 1- acute blood loss anemia : sable . s/p transfusion ., HB > 8. NO indication for more transfusion 2- dizziness and blurry vision : in setting of anemi a. resolve d 3- Pruritus : resolved . ? allergic reaction to meds. dispo : per CORK PAINTER AND GRADER. Will sign off. please re-consult if needed
--- NOTE | 2018-02-13 15:17 | PN ---
Physical Exam: SUBJECTIVE: Consulted d/t patient complaint of blurry vision. Seen and examined. Blurry vision, pruritus, and all other symptoms resolved, no complaints. OBJECTIVE: Vital Signs Period Temp Pulse Resp BP Sys/Hannah Pulse Ox Last 24 Hr 98.2 F-98.5 F 87-88 20-20 113-120/67-73 GENERAL: A&Ox3, in NAD HEAD: NC/AT EYES: PERRLA, EOMI LUNGS: CTA b/l HEART: RRR, no m/r/g ABDOMEN: tender, s/p NEUROLOGICAL: no visual abnormality, CNII-XII intact, 5/5 strength x 4, sensorium intact PSYCH: Normal mood, normal affect. SKIN: Warm, dry, normal turgor, no rashes or lesions noted Laboratory Results - last 24 hr 02/13/18 06:52 WBC 9.3 RBC 3.32 L Hgb 8.5 L Hct 26.4 L MCV 79.6 L MCH 25.7 MCHC 32.2 RDW 16.7 H Plt Count 310 D MPV 7.4 L Absolute Neuts (auto) 5.6 Neutrophils % 60.1 Lymphocytes % 27.2 D Monocytes % 11.4 H Eosinophils % 1.0 Basophils % 0.3 Nucleated RBC % 0 ASSESSMENT/PLAN: 32 y/o F s/p , had complained of blurry vision, was anemic #blurry vision -resolved #anemia -received 1U PRBC, improving Signing off consultation Visit type - Emergency Visit Emergency Visit: No - New Patient This patient is new to me today: No - Critical Care Critical Care patient: No
--- NOTE | 2018-02-16 10:08 | OP ---
DATE OF OPERATION: 02/10/2018 PREOPERATIVE DIAGNOSIS: Previous section, for elective section. POSTOPERATIVE DIAGNOSIS: Previous section, for elective section. PROCEDURE: Repeat low transverse section. SURGEON: Crystal Che MD SIMULATION SPECIALIST: TERRI Agee ANESTHESIA: Spinal. COMPLICATIONS: None. ESTIMATED BLOOD LOSS: 500 mL DESCRIPTION OF PROCEDURE: Patient was taken to the operating room where spinal anesthesia was administered. Patient was then prepped and draped in proper sterile fashion. A Pfannenstiel skin incision was made and carried down to the underlying layer of fascia. The fascia was incised in the midline and extended laterally. The anterior aspect of the fascial incision was then grasped with a Bakari clamp, elevated, and the rectus muscle dissected off bluntly. Attention was then turned to the superior aspect of the fascial incision which, in a similar fashion, was then grasped with a Bakari clamp, elevated, and the rectus muscle dissected off bluntly. The rectus muscle was then in the midline. The peritoneum identified and entered sharply with the Metzenbaum scissors. This incision was extended superiorly and inferiorly with good visualization of the bladder. Then, the vesicouterine peritoneum was then grasped with a pickup and extended laterally. Bladder flap created digitally. The bladder blade was reinserted, and the lower uterine segment was incised using a 10-blade. This incision was extended laterally and the head delivered atraumatically. Nose and mouth were suctioned and the cord clamped and cut. The infant was delivered to the waiting school psychology specialist. The placenta was removed manually. The uterus exteriorized and cleared of all clots and debris. The uterine incision was repaired using 0 Biosyn in a running locked fashion. A second layer of the same suture was used as a means to provide excellent hemostasis. The pelvis was then completely irrigated. The uterus was returned to the abdomen. The peritoneum was closed using 2-0 Biosyn. The fascia was reapproximated using 0 Vicryl in a running fashion. The skin was closed in a subcuticular fashion using 3-0 Vicryl. Patient tolerated the procedure well. Patient was then taken to PACU in stable condition. PATHOLOGY: Placenta. Emmy HALL/[id number]
--- NOTE | 2018-02-16 18:16 | PATH ---
Surgical Pathology Report Patient Name: ANTONIETA CAMPOS [facility]. Rec. #: [id number] /Age/Gender: 1985 (Age: 32) / F Account: [id number] Location: [facility] OBS/CARD GRADER Taken: 02/10/2018 Received: 02/13/2018 Reported: 02/16/2018 Physicians: Crystal Che M.D. Specimen(s) Received A: PLACENTA B: PORTION OF RIGHT FALLOPIAN TUBE C: PORTION OF LEFT FALLOPIAN TUBE Clinical History , 39 weeks Final Diagnosis A. PLACENTA, SECTION: 488 g THIRD TRIMESTER PLACENTA WITH TRIVASCULAR UMBILICAL CORD AND UNREMARKABLE PLACENTAL MEMBRANES. B. FALLOPIAN TUBE, RIGHT, PARTIAL EXCISION: FULL LUMINAL PORTION OF UNREMARKABLE FALLOPIAN TUBE. C. FALLOPIAN TUBE, LEFT, PARTIAL EXCISION: FULL LUMINAL PORTION OF UNREMARKABLE FALLOPIAN TUBE. Electronically Signed Nayeli Pritchett M.D. Gross Description A. The specimen is received fresh labeled placenta and is a 488 gram, 16.5 x 16.0 x 2.5 cm. placenta with attached membranes and umbilical cord. The attached membranes are morfin, translucent with focal opacities and insert marginally. The umbilical cord measures 33 cm. in length and averages 1.1 cm. in diameter. The cord inserts eccentrically, 4.5 cm. to the nearest margin. No true knots or strictures are identified. Cut surface of the umbilical cord reveals 3 vessels. The surface is jasmine-blue with minimal fibrin deposition and appropriate caliber vessels. The maternal surface is red-brown with focal defects. Sectioning reveals red-brown, spongy parenchyma. No lesions are identified. Industrial Production Manager sections are submitted in three cassettes as follows: 1- membrane rolls and umbilical cord; 2-3- full thickness sections of placenta. B. Received in formalin labeled "portion of right fallopian tube," is a 0.8 cm in length portion of fallopian tube. No fimbria are present. The outer surface is morfin-hdz and smooth. Sectioning reveals an unremarkable lumen. Industrial Production Manager sections are submitted in one cassette. C. Received in formalin labeled "portion of left fallopian tube," is a 0.6 cm in length portion of fallopian tube. No fimbria are present. The outer surface is morfin-hdz and smooth. Sectioning reveals an unremarkable lumen. Industrial Production Manager sections are submitted in one cassette. 02/15/2018 [facility]
== END 2018-02-13 12:25 | disposition home or self-care (01) | DRG 540 ==
LOC: JLDR 06:35 → J3W 12:24
PROVIDERS: ADMIT Obstetrics & Gynecology; ATTEND Obstetrics & Gynecology
PROC: 10D00Z1 Extraction of Products of Conception, Low, Open Approach (ICD-10-PCS; principal; 2018-02-10)
DX: O34.211 Maternal care for low transverse scar from previous cesarean delivery (principal); D62 Acute posthemorrhagic anemia; O99.02 Anemia complicating childbirth; Z3A.01 Less than 8 weeks gestation of pregnancy; Z37.0 Single live birth; O75.89 Other specified complications of labor and delivery; L29.8 Other pruritus; R42 Dizziness and giddiness
CPT/HCPCS: 36415; 36430; 36511; 71045-TC-FY; 80053; 83605; 83735; 85025; 85027; 85610; 86850; 86900; 86901; 86922; 88302-TC; 88307-TC; 90715; 93005; 93010; P9038; P9058